=== PATIENT | female | born 1975 | race Caucasian/White ===

== ENCOUNTER → 2021-09-01 | Outpatient (CLI) | payer OTHER ==
[~2021-09-01] MED LIST: B Complete1 EACH PO; ESTR2 PO; FOLI1; FOLI1 PO; Hair, Skin & N1 EACH PO; IBUP800 PO; Lysine500 MG PO; OXYACE5T PO; PROM25 PO; St. John's Wor300 M1 PO
[2021-09-01 15:37] LABS: BASOPHILS ABSOLUTE AUTO 0.03 K/mm3 (0.00-0.23); BASOPHILS PERCENT AUTO 1 % (0-2); EOSINOPHILS ABSOLUTE AUTO 0.23 K/mm3 (0.00-0.68); EOSINOPHILS PERCENT AUTO 5 % (0-6); Hematocrit 33.9 % (33.0-51.0); Hemoglobin 10.8 g/dL (11.5-16.0); IMMATURE GRAN ABSOLUTE AUTO 0.01 K/mm3 (0.00-0.10); IMMATURE GRAN PERCENT AUTO 0 % (0-1); LYMPHOCYTES ABSOLUTE AUTO 1.92 K/mm3 (0.84-5.20); LYMPHOCYTES PERCENT AUTO 43 % (21-46); MONOCYTES ABSOLUTE AUTO 0.34 K/mm3 (0.16-1.47); MONOCYTES PERCENT AUTO 8 % (4-13); Mean Corpuscular HGB 30.9 pg (26.0-34.0); Mean Corpuscular HGB Conc 31.9 g/dL (31.5-36.5); Mean Corpuscular Volume 97 fL (80-100); Mean Platelet Volume 9.4 fL (9.1-12.4); NEUTROPHILS PERCENT AUTO 43 % (41-73); Platelet Count 378 K/mm3 (150-400); RDW Coefficient Variation 14.4 % (11.7-14.2); RDW Standard Deviation 50.8 fL (35.1-46.3); White Blood Cell Count 4.43 K/mm3 (4.00-11.30)
[2021-09-01 15:38] LABS: Alanine Aminotransfer (ALT/SGP 16 U/L (12-78); Albumin, Blood 3.2 g/dL (3.4-5.0); Albumin/Globulin Ratio 0.9 (0.8-1.8); Alk Phos 87 U/L (50-136); Anion Gap 5 mmol/L (6-16); Aspartate Aminotrans (AST/SGOT 12 U/L (12-37); Bilirubin, Total 0.3 mg/dL (0.1-1.0); Blood Urea Nitrogen 14 mg/dL (8-24); Bun/Creatinine Ratio 21.1 (12.0-20.0); CO2, Blood 27 mmol/L (21-32); Chloride, Blood 107 mmol/L (98-108); Creatinine, Blood 0.66 mg/dL (0.40-1.00); Globulin, Blood 3.7 g/dL (2.2-4.0); Glomerular Filtration Rate >60 (60-); Glucose, Blood 108 mg/dL (70-99); Potassium, Blood 3.7 mmol/L (3.5-5.5); Sodium, Blood 139 mmol/L (136-145); Total Protein, Blood 6.9 g/dL (6.4-8.2)
== END | disposition home or self-care (01) ==
LOC: LAB HH 11:55 → LAB 11:55
PROVIDERS: Orthopaedic Surgery Adult Reconstructive Orthopaedic Surgery
DX: T84.52XA Infection and inflammatory reaction due to internal left hip prosthesis, initial encounter (principal); B95.7 Other staphylococcus as the cause of diseases classified elsewhere
CPT/HCPCS: 80053; 85025

== ENCOUNTER → 2021-09-08 | Outpatient (CLI) | payer OTHER ==
[2021-09-08 18:54] LABS: Hematocrit 34.8 % (33.0-51.0); Hemoglobin 11.2 g/dL (11.5-16.0); Mean Corpuscular HGB Conc 32.2 g/dL (31.5-36.5); Mean Corpuscular Volume 96 fL (80-100); Mean Platelet Volume 9.6 fL (9.1-12.4); Platelet Count 288 K/mm3 (150-400); RDW Coefficient Variation 13.8 % (11.7-14.2); RDW Standard Deviation 49.3 fL (35.1-46.3); Red Blood Cell Count 3.61 M/mm3 (3.80-5.20)
[2021-09-08 19:36] LABS: Alanine Aminotransfer (ALT/SGP 13 U/L (12-78); Albumin, Blood 3.3 g/dL (3.4-5.0); Albumin/Globulin Ratio 0.9 (0.8-1.8); Alk Phos 85 U/L (50-136); Anion Gap 5 mmol/L (6-16); Aspartate Aminotrans (AST/SGOT 12 U/L (12-37); Bilirubin, Total 0.3 mg/dL (0.1-1.0); Blood Urea Nitrogen 10 mg/dL (8-24); Bun/Creatinine Ratio 15.5 (12.0-20.0); CO2, Blood 27 mmol/L (21-32); Calcium, Blood 9.1 mg/dL (8.5-10.1); Chloride, Blood 107 mmol/L (98-108); Creatinine, Blood 0.65 mg/dL (0.40-1.00); Globulin, Blood 3.6 g/dL (2.2-4.0); Glomerular Filtration Rate >60 (60-); Glucose, Blood 88 mg/dL (70-99); Potassium, Blood 3.9 mmol/L (3.5-5.5); Sodium, Blood 139 mmol/L (136-145); Total Protein, Blood 6.9 g/dL (6.4-8.2)
[2021-09-08 20:00] LABS: BASOPHILS ABSOLUTE MAN 0.05 K/mm3 (0.00-0.23); BASOPHILS PERCENT MAN 1 % (0-2); EOSINOPHILS ABSOLUTE MAN 0.35 K/mm3 (0.00-0.68); EOSINOPHILS PERCENT MAN 7 % (0-6); LYMPHOCYTES ABSOLUTE MAN 2.25 K/mm3 (0.84-5.20); LYMPHOCYTES PERCENT MAN 45 % (21-46); MONOCYTES ABSOLUTE MAN 0.25 K/mm3 (0.16-1.47); MONOCYTES PERCENT MAN 5 % (4-13); SEG NEUTROPHILS PERCENT MAN 42 % (41-73); TOTAL CELLS COUNTED 100
== END ==
LOC: LAB HH 12:40
PROVIDERS: Nurse Practitioner Obstetrics & Gynecology
DX: T84.52XA Infection and inflammatory reaction due to internal left hip prosthesis, initial encounter (principal); B95.7 Other staphylococcus as the cause of diseases classified elsewhere
CPT/HCPCS: 80053; 85007; 85027